=== PATIENT | male | born 1965 | race Caucasian/White ===

== ENCOUNTER 2016-10-15 15:29 | Emergency (ER) | payer OTHER ==
[~2016-10-15] VITALS: Ht 172.7 cm; Wt 81.6 kg
--- NOTE | 2016-10-15 17:20 | NUR ---
PT. VERBALIZED UNDERSTANDING OF AFTERCARE INSTRUCTIONS.Patient discharged to home in stable condition. Written and verbal after care instructions given. Patient verbalizes understanding of instruction.
[2016-10-15 17:21] VITALS: BP 156/77
== END 2016-10-15 17:21 | disposition home or self-care (01) ==
LOC: ER 15:30
DX: S61.212A Laceration without foreign body of right middle finger without damage to nail, initial encounter (principal); W23.1XXA Caught, crushed, jammed, or pinched between stationary objects, initial encounter; Y93.89 Activity, other specified; Y92.89 Other specified places as the place of occurrence of the external cause; Y99.9 Unspecified external cause status
CPT/HCPCS: 29130; 73140; 99284; A4606; A6402; Z7610